=== PATIENT | female | born 1965 | race Caucasian/White ===

== ENCOUNTER → 2016-12-06 | Day surgery (SDC) | payer OTHER ==
[~2016-12-06] MED LIST: ACETAMINOPHEN 1000 MG/100 ML VIAL IV ONE; ATEN-100 PO; ATEN25TA PO; BUPIVACAINE/EPINEPHRINE 0.25% 50 ML VIAL ONE; CYMB60CA PO; LACTATED RINGER'S 1000 ML INJ 1,000 ML ONE; LIDO5DIS35 TOPICAL; LIDO5T TOP; MIDAZOLAM HCL 2 MG/2 ML VIAL ONE; ONDANSETRON HCL 4 MG/2 ML VIAL IV PUSH ONE; PANT40IN3 PO; PROPOFOL 200 MG/20 ML AMP IV ONE; TOPI1TAB97 PO; TOPI25CA PO; ULTR50TA PO; VANCOMYCIN HCL 1000 MG VIAL ONE; ceFAZolin INJ 1,000 MG VIAL ONE
--- NOTE | 2016-12-14 09:09 | MP ---
cc: ALFREDITO PETERS M.D. DATE OF SURGERY 12/06/2016 PROCEDURE Bilateral simple mastectomies. PREOPERATIVE DIAGNOSIS Previous history DCIS right breast. POSTOPERATIVE DIAGNOSIS Previous history DCIS right breast. ANESTHESIA LMA SURGEON Alfredito Peters MD [employer] TECHNICIAN LORIE He ESTIMATED BLOOD LOSS 100 mL FLUIDS 1000 mL crystalloid COMPLICATIONS None DRAINS Reliavac x2 SPECIMEN Left and right breasts to pathology. PROCEDURE IN DETAIL The patient was seen in the holding area and then taken to the operating room. She was placed on the operating table in the supine position and laryngeal mask anesthesia was instituted. Both breasts were prepped and draped in the field. Time-out was taken confirming the correct patient site and procedures to be performed. The NATURAL DEVELOPER was present from the beginning to the end of the case assisting in all portions of the procedure. The NATURAL DEVELOPER was required to be present throughout the case for appropriate retraction, dissection, visualization and resection of the important anatomical structures during the procedure. The NATURAL DEVELOPER assisted during the entirety of the operation and the skill set of the NATURAL DEVELOPER was medically and surgically necessary, as the electrical service technician was working the instrument table in passing instruments to both the attending surgeon and the nurse practitioner. The skin was incised on the left first as there was no previous history of breast cancer on this side. The breast was excised and a Patey-type incision with a superior and inferior skin flap created. The superior flap was extended up to the clavicle and down to the inframammary fold. The breast was then removed from the chest wall in a medial to lateral fashion utilizing electrocautery. Laterally, the breast was removed down to the latissimus dorsi muscle. Care was taken to exclude any dissection in the axilla. The specimen was oriented with silk suture and passed off the table. All bleeding was meticulously controlled with electrocautery. The wound was irrigated and a Reliavac drain brought out via an inferiorly based stab incision and fixed to the skin with a 3-0 nylon suture. The wound was then closed with interrupted 2-0 Vicryl suture and 5-0 PDS in a running subcuticular fashion. The wound had 30 mL of 0.25% Marcaine with epinephrine injected into the drain and the wound was toweled off at this point. The right side was then addressed with an elliptical incision made around the nipple-areolar complex as on the left. Superior and inferior skin flaps were created and the breast was then removed in a medial to lateral fashion with electrocautery. The superior flap was carried up to the clavicle and the inferior flap was carried down to the inframammary fold. The breast was removed laterally and down at the latissimus dorsi muscle. The breast was oriented with silk sutures and passed off the table. Previous scar from the lumpectomy could be identified and care was taken to completely excise this cavity. This was not entered during the dissection. The wound was irrigated with saline and with hemostasis assured, a second Reliavac drain was brought out via an inferiorly based stab incision and fixed to the skin with a 3-0 nylon suture. The wound was closed with interrupted 2-0 Vicryl suture and the skin itself closed with 5-0 PDS in a running subcuticular fashion. The remaining 30 mL of 0.25% Marcaine with epinephrine was injected into the drain and at this time. Both wounds were dressed with Steri-Strips. 4x4s were applied around the drains. Sponge, needle and instrument counts were reported be correct x2. The patient was extubated and taken back to the recovery room in stable condition. She tolerated the procedure well. MD JARRED Robledo/RACHEL /9:58 PM /8:59 AM CANDE
== END | disposition home or self-care (01) ==
LOC: ESDC 06:04
PROVIDERS: ATTEND Surgery Trauma Surgery
DX: D05.11 Intraductal carcinoma in situ of right breast (principal)
CPT/HCPCS: 00400; 19303; 88307; J0131; J0690; J2250; J2405; J3010; J3370; J7120; 88305